=== PATIENT | male | born 1980 | race Caucasian/White ===

== ENCOUNTER → 2019-03-07 10:50 | Outpatient (CLI) | payer BC, SELFPAY ==
--- NOTE | ~2019-03-07 | XR_ITS ---
XR chest 2V DATE: 03/07/2019 11:13 INDICATION: Bilateral uveitis TECHNIQUE: PA and lateral views COMPARISON: None FINDINGS: The lungs are hyperinflated but clear of infiltrate or consolidation. Mild bilateral apical capping. No pulmonary infiltrate or consolidation, pleural effusion or pulmonary vascular congestio n or pneumothorax is evident. No signs of sarcoidosis are noted; no paratracheal or hilar adenopathy. IMPRESSION: No active cardiopulmonary disease Reviewed, dictated and finalized at location B. GHT CALLER
== END ==
PROVIDERS: PCP Internal Medicine
DX: H20.013 Primary iridocyclitis, bilateral (principal)
CPT/HCPCS: 71046

== ENCOUNTER 2023-04-18 08:26 | Outpatient (CLI) | payer OTHER, SELFPAY ==
--- NOTE | ~2023-04-18 | XR_ITS ---
EXAMINATION: XR lumbar spine 2-3V DATE: 04/18/2023 08:59 INDICATION: Back pain. TECHNIQUE: 3 views of lumbar spine were obtained. COMPARISON: None. FINDINGS: Bone alignment is normal. There is mild chronic anterior wedging of L1 vertebral body. Ther e is mildly decreased disc height at L3-L4, moderately decreased disc height at L4-L5, and severely d ecreased disc height at L5-S1. There is multilevel facet joint osteoarthritis, moderate in lower lumb ar spine. IMPRESSION: 1. Severe lower lumbar spondylosis. Reviewed, dictated and finalized at location A. OW FABRIC CALENDERER
--- NOTE | ~2023-04-18 | XR_ITS ---
EXAMINATION: XR sacroiliac joints min 3V DATE: 04/18/2023 08:58 INDICATION: Back pain. TECHNIQUE: 3 views of the sacroiliac joints were obtained. COMPARISON: None. FINDINGS: Bone alignment is normal. No fracture. There is mild osteoarthritis of the sacroiliac joint s. IMPRESSION: 1. Mild osteoarthritis of the sacroiliac joints. Reviewed, dictated and finalized at location A. ERTY ECONOMIST
== END 2023-04-18 08:27 | disposition home or self-care (01) ==
LOC: ANHIMG 08:32
PROVIDERS: PCP Emergency Medicine; Visit Provider Emergency Medicine
DX: M43.06 Spondylolysis, lumbar region (principal); M46.1 Sacroiliitis, not elsewhere classified
CPT/HCPCS: 72100; 72202

== ENCOUNTER 2023-10-20 08:25 | Outpatient (CLI) | payer BC, SELFPAY ==
--- NOTE | ~2023-10-20 | XR_ITS ---
EXAMINATION: XR chest 2V 10/20/2023 08:48 INDICATION: Retinal vasculitis. PROCEDURE: 2 view chest COMPARISON: 03/07/2019 FINDINGS: The lungs are clear. The lungs are hyperinflated which is consistent with, but not diagnost ic of chronic obstructive pulmonary disease. The cardiomediastinal silhouette is within normal limit s. There are no pleural effusions. There is no pneumothorax suspected. IMPRESSION: 1: NO ACUTE CARDIOPULMONARY DISEASE. Reviewed, dictated and finalized at location B.
[2023-10-20 18:32] LABS: Rapid Plasma Reagin Non-Reactive (NonReactive)
[2023-10-21 12:34] LABS: Angiotensin Converting Enzyme 40 U/L (9-67)
[2023-10-23 12:09] LABS: NIL 0.05 IU/mL; Quantiferon TB Plus, 1T NEGATIVE (NEGATIVE)
[2023-10-29 20:49] LABS: Treponema pallidum Ab FTA ABS NON-REACTIVE
== END 2023-10-20 08:26 | disposition home or self-care (01) ==
LOC: ANHIMG 08:30
PROVIDERS: PCP Emergency Medicine; Visit Provider Ophthalmology
DX: H44.113 Panuveitis, bilateral (principal)
CPT/HCPCS: 36415; 71046; 82164; 86480; 86592; 86780

== ENCOUNTER 2023-12-01 08:59 | Outpatient (CLI) | payer BC, SELFPAY ==
--- NOTE | ~2023-12-01 | XR_ITS ---
AP and oblique views of the SI joints CLINICAL HISTORY: Polyarthralgia COMPARISON: 04/18/2023 FINDINGS: SI joints there is minimal osteoarthritic change. No erosive or sclerotic change. No ankylo sis. Associated joints are intact. Soft tissues are unremarkable. IMPRESSION: Minimal osteoarthritic change of the SI joints, as before. Reviewed, dictated and finalized at location .
--- NOTE | ~2023-12-01 | XR_ITS ---
Bilateral Hands Technique: PA, oblique, and lateral views, and ball-catcher's view were obtained. Clinical History: Polyarthralgia Findings: No acute fracture or dislocation is seen. Old, healed fracture of the fifth metacarpal the right hand noted. Osseous alignment is anatomic. Joint spaces are preserved. Soft tissues are unremar kable. Impression: No arthritis evident. Old, healed fracture deformity the right fifth metacarpal. Reviewed, dictated and finalized at location M. Impression: No arthritis evident. Old, healed fracture deformity the right fifth metacarpal.
== END 2023-12-01 09:00 | disposition home or self-care (01) ==
PROVIDERS: PCP Emergency Medicine
DX: M25.50 Pain in unspecified joint (principal); M54.50 Low back pain, unspecified
CPT/HCPCS: 72202; 73130